=== PATIENT | female | born 1985 | race African-American/Black ===

== ENCOUNTER 2022-01-03 03:26 | Emergency (ER) | payer SELFPAY ==
[~2022-01-03] VITALS: Ht 165.1 cm; Wt 74.0 kg
[2022-01-03 03:33] VITALS: BP 118/76
[2022-01-03] MEDS ORDERED: OLANZAPINE 5MG TABLET PO SCH (04:45)
[2022-01-03] MEDS ORDERED: OLANZAPINE 10MG TABLET PO SCH (05:00)
[2022-01-03 05:14] LABS: CHLORIDE 105 mEq/L (98-107)
[2022-01-03 05:15] LABS: BASOPHILS % 0.4 % (0.0-2.0); EOSINOPHILS % 0.8 % (0.0-5.0); HEMATOCRIT. 34.7 % (36.0-48.0); HEMOGLOBIN. 11.7 g/dL (12.0-16.0); LYMPHOCYTES % 32.3 % (20.0-50.0); MEAN CORPUSCULAR HEMOGLOBIN 28.9 pg (28.0-32.0); MEAN CORPUSCULAR VOLUME 85.9 fL (81.0-99.0); MEAN PLATELET VOLUME 7.5 fl (7.4-10.4); MONOCYTES % 9.9 % (2.0-8.0); NEUTROPHILS % 56.6 % (40.0-76.0); PLATELET 265 x1000/uL (130-400); RED BLOOD CELL COUNT 4.04 mill/uL (4.2-5.4)
[2022-01-03 05:20] LABS: CLARITY URINE CLOUDY (CLEAR); COLOR URINE DARK YELLOW (YELLOW); KETONES URINE TRACE (NEGATIVE); LEUKOCYTE ESTERASE URINE 1+ (NEGATIVE); NITRITE URINE NEGATIVE (NEGATIVE); OCCULT BLOOD URINE NEGATIVE (NEGATIVE); PROTEIN URINE 1+ (NEGATIVE); SPECIFIC GRAVITY URINE 1.031 (1.005-1.030)
[2022-01-03 05:20] LABS: HCG SCREEN NEGATIVE
[2022-01-03 05:21] LABS: ETHANOL BLOOD < 10 mg/dL
[2022-01-03 05:48] LABS: *BARBITURATES SCREEN URINE NEGATIVE (NEGATIVE); *BENZODIAZEPINES SCREEN URINE NEGATIVE (NEGATIVE); *COCAINE SCREEN URINE NEGATIVE (NEGATIVE); CANNABINOID URINE SCREEN NEGATIVE (NEGATIVE); METHADONE URINE SCREEN NEGATIVE (NEGATIVE); OPIATES URINE SCREEN NEGATIVE (NEGATIVE)
[2022-01-03 06:16] LABS: *AMPHETAMINES SCREEN URINE PRESUMTIVE POSITIVE (NEGATIVE)
[2022-01-03 06:17] LABS: PHENCYCLIDINE URINE SCREEN PRESUMTIVE POSITIVE (NEGATIVE)
== END 2022-01-03 05:34 | disposition left against medical advice (07) ==
LOC: ER 03:26
DX: R06.02 Shortness of breath (principal); R45.851 Suicidal ideations; Z20.822 Contact with and (suspected) exposure to COVID-19
CPT/HCPCS: 36415; 80053; 80305; 80307; 80320; 80329; 81003; 81025; 84703; 85025; 99283; C9803; U0003; U0005; G0480